=== PATIENT | female | born 1990 | race Two or more races ===

== ENCOUNTER 2020-01-18 01:57 | Emergency (ER) | payer MEDICAID, OTHER ==
[~2020-01-18] VITALS: Ht 152.4 cm; Wt 68.5 kg
[2020-01-18 02:26] VITALS: BP 103/71
[2020-01-18] MEDS ORDERED: KETOROLAC TROMETH 60MG/2ML VIAL IM ONE (04:45)
== END 2020-01-18 05:32 | disposition home or self-care (01) ==
LOC: ER 01:57
DX: K11.1 Hypertrophy of salivary gland (principal)
CPT/HCPCS: 81025; 96372; 99283; J1885